=== PATIENT | male | born 2000 | race African-American/Black ===

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

== ENCOUNTER 2021-04-27 10:50 | Emergency (ER) | payer OTHER ==
[~2021-04-27] VITALS: Ht 157.5 cm; Wt 41.1 kg
[~2021-04-27 10:50] MED LIST changes: +ONDA4TAB12 PO
[2021-04-27] MEDS ORDERED: IV RINGERS SOLUTION,LACTATED 1,000 ML IV ONE (11:00)
[2021-04-27] MEDS ORDERED: ONDANSETRON PF 4 MG/2 ML VIAL. IVP ONE ×2 (11:00→11:45)
[2021-04-27] MEDS ORDERED: MORPHINE SULFATE 4 MG/ML DISP.SYRIN. IV ONE (11:00)
--- NOTE | 2021-04-27 11:10 | PHYS DOC ---
Past History Past Medical History: Kidney Stones Past Surgical History: No Surgical History Smoking: Cigarettes Alcohol Use: Occasionally Drug Use: Marijuana Adult General Chief Complaint Chief Complaint: FLANK PAIN HPI HPI Patient is a otherwise healthy 20-year-old male with a past medical history significant for 2 episodes of kidney stones who presents with a chief complaint of left flank pain over the last day, sharp in nature, 8 out of 10 at its worst, associated with a couple episodes of nonbloody nonbilious emesis. States it does feel similar to previous episodes. Denies any recent traumas, travels, fevers, chest pain, shortness of breath, other abdominal pain, dysuria, hematuri a, diarrhea or blood in the stool. States he did not take any medicine today, as he is nauseous. Review of Systems Review of Systems Review of systems otherwise unremarkable except noted in HPI Current Medications Current Medications Current Medications Medications (Trade) Dose Ordered Sig/Nessa Start Time Stop Time Status Last Admin Dose Admin Lactated Ringer's 1,000 ml @ 1,000 mls/hr 1X ONCE 04/27/21 11:00 04/27/21 11:59 Morphine Sulfate (Morphine 4mg Syringe) 4 mg 1X ONCE 04/27/21 11:00 04/27/21 11:01 DC Ondansetron HCl (Zofran) 4 mg 1X ONCE 04/27/21 11:00 04/27/21 11:01 DC Allergies Allergies Allergies Coded Allergies Type Severity Reaction Last Updated Verified I S O L A T I O N *CONTACT* Allergy Unknown 05/15/19 Yes NKMA Allergy Unknown 05/15/19 Yes Physical Exam Physical Exam Constitutional: Well developed, well nourished, no acute distress, non-toxic appearance. [] HENT: Normocephalic, atraumatic, Eyes: conjunctiva normal, no discharge. [] Neck: Normal range of motion, no tenderness, supple, no stridor. [] Cardiovascular:Heart rate regular rhythm, no murmur [] Lungs & Thorax: Bilateral breath sounds clear to auscultation [] Abdomen: soft, no tenderness, no masses, no pulsatile masses. [] Skin: Warm, dry, no erythema, no rash. [] Back: Left CVA tenderness. [] Extremities: No tenderness, ROM intact, no edema. [] Neurologic: Alert and oriented X 3, no focal deficits noted. [] Psychologic: Affect normal, mood normal. [] Current Patient Data Vital Signs Vital Signs Date Time Temp Pulse Resp B/P (MAP) Pulse Ox O2 Delivery O2 Flow Rate FiO2 04/27/21 10:59 98.4 92 16 132/96 99 Room Air EKG EKG [] Radiology/Procedures Radiology/Procedures [] Heart Score C/O Chest Pain: No Risk Factors: Risk Factors: DM, Current or recent (<one month) smoker, HTN, HLP, family history of CAD, obesity. Risk Scores: Risk Factors: DM, Current or recent (<one month) smoker, HTN, HLP, family history of CAD, obesity. Course & Med Decision Making Course & Med Decision Making Patient is a 20-year-old male who presents with left flank pain associated with nausea and vomiting Vital signs not concerning. Physical exam noted above. Patient placed on monitor with IV access established and IV fluid resuscitation begun. Gave Zofran for nausea and morphine for pain. Laboratory analysis notable for leukocytosis but normal creatinine and no signs of urinary tract infection yet. CT showing a 6 mm obstructing stone within the left UPJ and mild left hydronephrosis. Discussed all findings with patient. Discussed pain, nausea and symptom management at home. Recommended a urology consult and admission to the hospital, but patient stated he would prefer to go on home and do expectant waiting as he has done this 2 times previous with similar size stones and they passed in a day or 2. Discussed with patient that if indeed he does this he needs to come back to the emergency department immediately with any new or concerning symptoms such as but not limited to excessive pain, nausea and vomiting that makes it unable for him to eat or drink, hematuria or if it has not passed in a week to come back to the emergency department for reevaluation. Advised to call his primary care physician in the morning to update on ED visit and set up a follow-up. Patient grateful, verbalized understanding and agreed with plan of discharge. [] Dragon Disclaimer Dragon Disclaimer This electronic medical record was generated, in whole or in part, using a voice recognition dictation system. Departure Departure: Impression: Primary Impression: Flank pain Additional Impressions: Nausea & vomiting Renal lithiasis Disposition: HOME / SELF CARE / HOMELESS Condition: IMPROVED Referrals: RENNY CHANCE MD (PCP) Patient Instructions: Diet for Kidney Stones, Kidney Stones Additional Instructions: Thank you for coming into the emergency department tonight and allowing us to take care of you. Please read all the attached information above very carefully to go back over things we discussed. Please use Tylenol and ibuprofen at home for pain control baseline and use your prescription pain medicine as prescribed. Please use your nausea medicine as we discussed and prescribed. Please take your Flomax once daily. Please be sure to drink plenty of fluids. As discussed, a urology consult and admission would be ideal but you stated that you would prefer to go on home and do watchful waiting as you have done this 2 times in the past with similar size stones that passed very quickly. As we discussed you need to come back to the emergency department immediately with any new or concerning symptoms such as but not limited to extreme pain that is not controlled by your pain medicine, nausea and vomiting that is uncontrolled and making it unable for you to eat, blood in your urine or any other concerning symptom that she may have. Please call your primary care physician in the morning as well to update on ED visit and set up a follow-up. Scripts Hydrocodone Bit/Acetaminophen (HYDROCODONE-APAP 5-325 ) 1 Each Tablet 1 TAB PO TID PRN for kidney stone for 7 Days, #21 TAB 0 Refills Prov: CHYNA STARK MD 04/27/21 Ondansetron Hcl (ZOFRAN) 4 Mg Tablet 1 TAB PO PRN Q6HRS PRN for NAUSEA, #10 TAB 2 Refills Prov: CHYNA STARK MD 04/27/21 Tamsulosin Hcl (FLOMAX) 0.4 Mg Cap.er.24h 1 CAP PO DAILY for renal stone for 14 Days, #14 CAP 11 Refills Prov: CHYNA STARK MD 04/27/21 Cephalexin (CEPHALEXIN) 500 Mg Capsule 1 CAP PO TID for renal stone for 5 Days, #15 CAP Prov: CHYNA STARK MD 04/27/21 Problem Qualifiers CHYNA STARK MD Apr 27, 2021 11:10
[2021-04-27 11:20] LABS: BASO # 0.1 x10^3/uL (0.0-0.2); BASO % 1 % (0-3); EOS # 0.4 x10^3/uL (0.0-0.7); EOS % 3 % (0-3); HEMATOCRIT 48.3 % (39.0-53.0); HEMOGLOBIN 16.9 g/dL (13.0-17.5); LYMPH # 3.1 x10^3/uL (1.0-4.8); LYMPH % 22 % (24-48); MEAN CORPUSCULAR HEMOGLOBIN 31 pg (25-35); MEAN CORPUSCULAR HGB CONC 35 g/dL (31-37); MEAN CORPUSCULAR VOLUME 88 fL (79-100); MONO # 0.7 x10^3/uL (0.0-1.1); MONO % 5 % (0-9); NEUT # 9.8 x10^3uL (1.8-7.7); NEUT % 69 % (31-73); PLATELET COUNT 288 x10^3/uL (140-400); RED BLOOD COUNT 5.46 x10^6/uL (4.30-5.70); RED CELL DISTRIBUTION WIDTH 12.6 % (11.5-14.5); WHITE BLOOD COUNT 14.1 x10^3/uL (4.0-11.0)
--- NOTE | 2021-04-27 11:23 | RAD ---
EXAM: Abdomen and pelvis CT without intravenous contrast. HISTORY: Flank pain. TECHNIQUE: Computed tomographic images of the abdomen and pelvis were obtained without contrast. Mult iplanar reformatting was performed. *One or more of the following individualized dose reduction techniques were utilized for this examina tion: 1. Automated exposure control. 2. Adjustment of the mA and/or kV according to patient size. 3. Use of iterative reconstruction technique. COMPARISON: 08/29/2020. FINDINGS: Evaluation of the lower thorax is unremarkable. There is no suspicious hepatic lesion on is noncontrast exam. The gallbladder, pancreas, spleen, stomach and adrenal glands are unremarkable. There is mild left hydronephrosis secondary to an obstructing 6 mm stone within the ureteropelvic mariluz ction. There are multiple nonobstructing bilateral renal stones, the largest of which on the right me asures 4 mm and the largest of which on the left measures 3 mm. The superimposed on nephrocalcinosis. The bladder is nearly empty. There is no appendicitis. There is no bowel obstruction. There is no abnormal bowel wall thickening. The aorta is normal in caliber. There is no lymphadenopathy. There is no suspicious or acute osseous finding. There is an incidental transitional lumbosacral segment. IMPRESSION: Mild left hydronephrosis secondary to an obstructing 6 mm stone within the left ureterope lvic junction. There are additional nonobstructive bilateral renal stones superimposed on nephrocalci nosis. Electronically signed by: Agnes Ceballos MD (04/27/2021 11:20 AM) [id number]
[2021-04-27 11:30] LABS: CALCIUM 9.8 mg/dL (8.5-10.1); CREATININE 1.1 mg/dL (0.7-1.3); GFR 104.3; POTASSIUM 4.4 mmol/L (3.5-5.1)
[2021-04-27] MEDS ORDERED: KETOROLAC 15 MG/ML VIAL. IVP ONE (11:45)
[2021-04-27] MEDS ORDERED: MORPHINE SULFATE 2 MG/ML DISP.SYRIN. IV ONE (11:45)
[2021-04-27] MEDS ORDERED: RINGERS LACTATED IV ONE (12:30)
[2021-04-27 12:40] LABS: COLOR,URINE STRAW
[2021-04-27 12:41] LABS: BILIRUBIN,URINE SMALL (NEG); CLARITY,URINE CLOUDY; GLUCOSE,URINE NEG (NEG); NITRITE,URINE NEG (NEG); UROBILINOGEN,URINE 0.2 mg/dL (0.2 mg/dL)
[2021-04-27 12:43] LABS: BACTERIA,URINE FEW /HPF (0-FEW); RBC,URINE TNTC /HPF (0-2); SQUAMOUS EPITHELIAL CELL,UR FEW /LPF
[2021-04-27] MEDS ORDERED: cefTRIAXone SODIUM 1 GM VIAL ONE (13:10)
[2021-04-27] MEDS ORDERED: IV NORMAL SALINE 50ML 50 ML ONE (13:10)
[2021-04-27 13:14] VITALS: BP 122/99
[2021-04-27] MEDS ORDERED: CEPH500C PO (13:16)
[2021-04-27] MEDS ORDERED: ONDA4TAB7 PO (13:16)
[2021-04-27] MEDS ORDERED: HYDR-2155 PO (13:16)
[2021-04-27] MEDS ORDERED: TAMS0.4C97 PO (13:16)
[2021-04-27] MEDS ORDERED: oxyCODONE/APAP 5/325 1 TAB TABLET PO ONE (13:30)
== END 2021-04-27 13:26 | disposition home or self-care (01) ==
LOC: ER 10:50
DX: N13.2 Hydronephrosis with renal and ureteral calculous obstruction (principal); F17.210 Nicotine dependence, cigarettes, uncomplicated; Z87.442 Personal history of urinary calculi; Z88.8 Allergy status to other drugs, medicaments and biological substances
CPT/HCPCS: 36415; 74176; 80048; 81001; 85025; 96361; 96365; 96375; 99285; J0696; J1885; J2270; J2405; J7120